=== PATIENT | female | born 2000 | race African-American/Black ===

== ENCOUNTER 2020-07-17 03:25 | Inpatient (IN) | payer BC, MEDICAID ==
[2020-07-17] VITALS (16 sets, daily range): BP systolic 102–132; BP diastolic 54–81
[~2020-07-17] VITALS: Ht 152.4 cm; Wt 48.6 kg
--- NOTE | 2020-07-17 03:30 | NUR ---
ED Nurse Note: Patient brought in by ambulance from home with c/o of hyperglycemia. Patient has hx of DM 1. Patient was admitted 2 days ago at [facility] for DKA and was prescribed insulin but has not taken insulin for day and half now. Patient is nauseated and vomited approx 150cc of gastic juice at bedside. BS triage 451. Patient denies CP/SOB/, fever and chills, denies LOC. Patient is AAOX4 and ambulatory.
--- NOTE | 2020-07-17 03:35 | NUR ---
ED Nurse Note: ERMD at bedside
--- NOTE | 2020-07-17 03:43 | Emergency Room Report ---
History of Present Illness General Chief Complaint: Abnormal Labs Source: Patient Present Illness HPI This is a 20-year-old female with a history of insulin-dependent type 1 diabetes. She presents with chief complaint of nausea and vomiting and hyperglycemia. She recently AMA from [facility] for DKA. Patient said that she has not taken her insulin for a day and a half. Patient states that she started feeling sick and feeling nauseous. No fever chills with no diarrhea. Vomiting is nonbloody and nonbilious. She just checked herself into a rehab facility yesterday for alcohol and benzodiazepine abuse. Denies any other drug use. Allergies: Coded Allergies: No Known Allergies (Unverified , 07/17/20) COVID-19 Screening Contact w/high risk pt: No Experienced COVID-19 symptoms?: No COVID-19 Testing performed ENVIRONMENTAL HEALTH AND SAFETY MANAGER: No Patient History Past Medical History: see triage record, old chart reviewed, DM Past Surgical History: none Pertinent Family History: none Social History: Reports: alcohol use, drug use Now: No Immunizations: other Reviewed Nursing Documentation: PMH: Agreed; PSxH: Agreed Nursing Documentation-PMH Hx Diabetes: Yes Review of Systems Eye: Denies: eye pain, blurred vision ENT: Denies: ear pain, nose congestion, throat swelling Respiratory: Denies: cough, shortness of breath Cardiovascular: Denies: chest pain, palpitations Gastrointestinal: Reports: nausea, vomiting; Denies: abdominal pain, diarrhea Musculoskeletal: Denies: back pain, joint pain Skin: Denies: rash Neurological: Denies: headache, numbness Endocrine: Denies: increased thirst, increased urine Hematologic/Lymphatic: Denies: easy bruising All Other Systems: negative except mentioned in HPI Physical Exam Vital Signs Date Time Temp Pulse Resp B/P (MAP) Pulse Ox O2 Delivery O2 Flow Rate FiO2 07/17/20 03:28 98.4 100 18 132/78 (96) 98 Room Air Vitals unremarkable Sp02 EP Interpretation: reviewed, normal General Appearance: no apparent distress, alert, thin Head: normocephalic, atraumatic Eyes: bilateral eye PERRL, bilateral eye EOMI ENT: hearing grossly normal, normal pharynx Neck: full range of motion, supple, no meningismus Respiratory: chest non-tender, lungs clear, normal breath sounds Cardiovascular #1: regular rate, rhythm, no murmur Gastrointestinal: normal bowel sounds, non tender, no mass, no organomegaly, no bruit, non-distended Musculoskeletal: back normal, normal range of motion, gait/station normal Psychiatric: mood/affect normal Procedures Critical Care Time Critical Care Time Critical care is mandated in this patient who presented with DKA. Patient require my urgent intervention to attenuate the risks of metabolic collapse which may lead to cardiovascular collapse and . Critical care time is 35 minutes excluding any reportable procedure. Critical care time included evaluation, multiple reevaluation, looking at old charts, interpreting laboratory and diagnostic data, discussing case with patient and family and consultants, and charting. Medical Decision Making Diagnostic Impression: Primary Impression: DKA (diabetic ketoacidoses) Qualified Codes: E10.10 - Type 1 diabetes mellitus with ketoacidosis without coma Additional Impression: Noncompliance ER Course Patient presents with DKA. Noncompliant with her medication. Insulin drip started. Because of the dropping glucose, will place her on D5 half-normal saline. I discussed the case with Dr. Gale for admission. EKG Diagnostic Results Rate: normal Rhythm: NSR ST Segments: no acute changes Rhythm Strip Diag. Results EP Interpretation: yes Rate: 98 Rhythm: NSR, no PVC's, no ectopy Last Vital Signs Date Time Temp Pulse Resp B/P (MAP) Pulse Ox O2 Delivery O2 Flow Rate FiO2 07/17/20 03:28 98.4 100 18 132/78 (96) 98 Room Air Status: improved Disposition: ADMITTED INPATIENT Condition: Critical Referrals: NOT CHOSEN IPA/,REFERRING (PCP) Abdullahi Colon MD Jul 17, 2020 03:43
[2020-07-17] MEDS ORDERED: Insulin Human Regular 100units/ml 3ml IV ONE (03:45)
--- NOTE | 2020-07-17 04:00 | NUR ---
ED Nurse Note: Blood sent to lab
[2020-07-17 04:11] LABS: BASOPHILS % (AUTO) 2.7 % (0.0-2.0); EOSINOPHILS % (AUTO) 0.2 % (0.0-3.0); HEMATOCRIT 44.6 % (37.0-47.0); HEMOGLOBIN 14.1 G/DL (12.0-16.0); LYMPHOCYTES % (AUTO) 25.9 % (20.0-45.0); MEAN CORPUSCULAR VOLUME 87 FL (80-99); MONOCYTES % (AUTO) 9.3 % (1.0-10.0); NEUTROPHILS % (AUTO) 61.9 % (45.0-75.0); PLATELET COUNT 362 K/UL (150-450); RED BLOOD COUNT 5.13 M/UL (4.20-5.40); RED CELL DISTRIBUTION WIDTH 12.8 % (11.6-14.8); WHITE BLOOD COUNT 8.7 K/UL (4.8-10.8)
[2020-07-17 04:23] LABS: ANION GAP 26 mmol/L (5-15); BLOOD UREA NITROGEN 7 mg/dL (7-18); CALCIUM 9.2 MG/DL (8.5-10.1); CARBON DIOXIDE 11 MMOL/L (21-32); CHLORIDE 93 MMOL/L (98-107); CREATININE 1.2 MG/DL (0.55-1.30); POTASSIUM 4.2 MMOL/L (3.5-5.1); SODIUM 130 MMOL/L (136-145)
[2020-07-17 04:27] LABS: ALANINE AMINOTRANSFERASE 23 U/L (12-78); ALBUMIN 4.3 G/DL (3.4-5.0); ALBUMIN/GLOBULIN RATIO 1.1 (1.0-2.7); ALKALINE PHOSPHATASE 153 U/L (46-116); ASPARTATE AMINO TRANSFERASE 18 U/L (15-37); BILIRUBIN,TOTAL 0.5 MG/DL (0.2-1.0)
--- NOTE | 2020-07-17 04:51 | NUR ---
ED Nurse Note: Urine sent to lab
[2020-07-17 04:54] LABS: APPEARANCE,URINE CLEAR; BILIRUBIN, URINE NEGATIVE (NEGATIVE); COLOR,URINE PALE YELLOW; GLUCOSE, URINE (UA) 4+ (NEGATIVE); KETONES,URINE 4+ (NEGATIVE); LEUKOCYTE ESTERASE ,URINE NEGATIVE (NEGATIVE); NITRITE,URINE NEGATIVE (NEGATIVE); PH,URINE 5 (4.5-8.0); PROTEIN,URINE 2+ (NEGATIVE); UROBILINOGEN,URINE NORMAL MG/DL (0.0-1.0)
--- NOTE | 2020-07-17 05:09 | NUR ---
ED Nurse Note: vre,cre,mrsa swabs sent
[2020-07-17] MEDS ORDERED: D5 1/2NS w/KCl 20mEq 1,000 ML IV SCH ×2 (05:30→06:00)
[2020-07-17] MEDS ORDERED: Insulin Reg 100 units Premix 100 ML IV SCH ×3 (05:30→21:00)
[2020-07-17 05:42] LABS: ANION GAP 22 mmol/L (5-15); BLOOD UREA NITROGEN 6 mg/dL (7-18); CALCIUM 7.4 MG/DL (8.5-10.1); CARBON DIOXIDE 11 MMOL/L (21-32); CHLORIDE 103 MMOL/L (98-107); POTASSIUM 3.5 MMOL/L (3.5-5.1); SODIUM 136 MMOL/L (136-145)
--- NOTE | 2020-07-17 05:59 | NUR ---
ED Nurse Note: Called [facility] and spoke to INDIO to fix EMAR orders for insulin drip
[2020-07-17] MEDS ORDERED: Insulin Reg 100 units Premix 100 ML IVPB SCH (06:00)
--- NOTE | 2020-07-17 06:00 | NUR ---
ED Nurse Note: Insulin drip started at 3ml/hr - CBG at 245mg/dl
--- NOTE | 2020-07-17 07:00 | NUR ---
ED Nurse Note: CBG at 258mg/dl. ERMD notified
--- NOTE | 2020-07-17 07:02 | NUR ---
HAND-OFF: Report given to MAYURI.
--- NOTE | 2020-07-17 07:03 | NUR ---
ED Nurse Note: Received report from Josh HYATT. Pt seen sleeping in bed. Breathing even and unlabored. Safety and comfort provided. Will cont to monitor.
--- NOTE | 2020-07-17 07:54 | NUR ---
ED Nurse Note: Report given to Sissy HYATT.
[2020-07-17] MEDS ORDERED: NOVOLIN R100 UNIT/1 SUBQ (07:55)
--- NOTE | 2020-07-17 08:00 | NUR ---
TRANSFER TO FLOOR: Patient transferred to ICU. Report given to Sissy HYATT. Pt AAOX4, verbally responsive. Ambulatory. IV line on left AC 20g patent and intact. On insulin drip @ 2.5units/hr. No skin issues. Swabs are sent. Med recon done. All belongings sent with the patient.
--- NOTE | 2020-07-17 08:10 | NUR ---
NURSE NOTES: Patient received from ED RN Krunal. Patient stable at this time with no s/sx of pain or distress. ST on court monitor. Cardiac and breath sounds benign. Bowel sounds present. Insulin drip infusing at 2.5units/hr along with IV fluids. Side rails up x2, call light within reach, bed low and locked.
--- NOTE | 2020-07-17 08:55 | NUR ---
NURSE NOTES: Current BS of 214 with insulin drip at 2.5units. Contacted Dr. Gale for admit orders.
[2020-07-17 09:41] LABS: ANION GAP 14 mmol/L (5-15); BLOOD UREA NITROGEN 6 mg/dL (7-18); CALCIUM 7.6 MG/DL (8.5-10.1); CARBON DIOXIDE 16 MMOL/L (21-32); CHLORIDE 105 MMOL/L (98-107); CREATININE 1.1 MG/DL (0.55-1.30); POTASSIUM 3.7 MMOL/L (3.5-5.1); SODIUM 135 MMOL/L (136-145)
[2020-07-17] MEDS: Insulin Human Regular 100units/ml 3ml IV PRN ×3 (09:51→16:29)
[2020-07-17] MEDS: Insulin Rate Change 1 Each MISC PRN ×6 (09:53→17:19)
[2020-07-17] MEDS ORDERED: Insulin Human Regular 100units/ml 3ml IV PRN (10:00)
--- NOTE | 2020-07-17 10:00 | NUR ---
NURSE NOTES: BS 160. Insulin drip titrated down to 1.2.
--- NOTE | 2020-07-17 11:00 | NUR ---
NURSE NOTES: BS 162. Insulin drip maintained at 1.2.
--- NOTE | 2020-07-17 11:00 | Consultation ---
DATE OF CONSULTATION: 07/17/2020 PULMONARY CONSULTATION/ICU CONSULTATION CONSULTING PHYSICIAN: Edward Putnam MD. HISTORY OF PRESENT ILLNESS: This is a 20-year-old female with a history of insulin dependent diabetes. She presented with marked hyperglycemia, DKA, as well as symptoms of nausea, vomiting, and hyperglycemia. She apparently recently discharged/AMA from [facility]. She again reports that she has not taking her insulin. She is admitted to the hospital in ICU on an insulin drip. She reports that she has a history of alcohol and benzodiazepine abuse. REVIEW OF SYSTEMS: Denies any headaches, hematemesis, melena, or hematochezia. She admits to having nausea and vomiting. PAST MEDICAL HISTORY: Diabetes mellitus, alcohol and benzodiazepine abuse. SOCIAL HISTORY: Denies substance abuse. PHYSICAL EXAMINATION: GENERAL: Reveals a 20-year-old female. VITAL SIGNS: Blood pressure 120/70, heart rate 95, respirations 18. O2 saturation 98% on room air. HEENT: Unremarkable. LUNGS: Clear breath sounds bilaterally. ABDOMEN: Soft. EXTREMITIES: There is no edema. LABORATORY DATA: CBC and chemistries are unremarkable. Glucose was initially 449 with a anion gap of 26. Currently anion gap is 14 and glucose 214. She is on insulin infusion and also on D5 NS. Her urine toxicology is positive for benzodiazepines. IMPRESSION: DKA. DISCUSSION: Admit to ICU. Insulin drip. IV fluids. Keep NPO till gap resolves. Hold off antibiotics. We will initiate DVT prophylaxis. We will follow. Edward Putnam M.D. DR: JOYCE JOB#: [id number] CC:
--- NOTE | 2020-07-17 12:00 | NUR ---
NURSE NOTES: BS 178. Insulin drip maintained at 1.2.
--- NOTE | 2020-07-17 12:04 | Cardiology Report ---
APPROVED REPORT EKG Measurement Heart [id number] ME [id number] <Conclusion> Normal sinus rhythm Nonspecific T wave abnormality Prolonged QT Abnormal ECG
--- NOTE | 2020-07-17 13:00 | NUR ---
NURSE NOTES: BS 203. Insulin drip titrated to 2.0. 5units given IVP.
--- NOTE | 2020-07-17 14:00 | NUR ---
NURSE NOTES: BS 190. Insulin drip titrated down to 1.5.
--- NOTE | 2020-07-17 14:30 | NUR ---
LEASE ADMINISTRATOR NOTE SW met w/ pt and obtained psychosocial information. Pt presents as A&O4x. Pt is ambulatory w/o DMEs and independent w/ ADLs and IADLs. PT has hx of homelessness, sleeping in her car. Pt is currently participating detox program at [facility] to [address] [address]. Pt is single and does not have any children. Pt has hx of Cocaine, ETOH and Xanax abuse. UDS positive for Benzo. Pt shares that she signed AMA when she was hospitalized at [facility] d/t her personal issue. Due to AMA, pt did not get insulin prescription. SW emphasized the importance of insulin in her current health condition. Pt verbalized understanding. Pt plans to return to the detox program upon DC. PT does not share any director of social work concerns/needs at this time. Emergency contact: Chadwick Danielle (father) [phone]
--- NOTE | 2020-07-17 15:00 | NUR ---
NURSE NOTES: BS 166. Insulin drip titrated down to 1.2.
--- NOTE | 2020-07-17 15:18 | NUR ---
CASE MANAGEMENT:REVIEW 20 YR OLD FEMALE BIBA FROM "[facility]" CC: WAS RECENTLY DC'D FROM [facility] WITH PRESCRIPTION FOR INSULIN BUT DID NOT TAKE IT SI: DKA 98.4 100 18 132/78 98% ON RA NA-130 ANION GAP+26 GLUCOSE+449 IS: 1L NS BOLUS X2 IV INSULIN X1 INSULIN GTT : TO ICU
--- NOTE | 2020-07-17 16:00 | NUR ---
NURSE NOTES: BS 211. Insulin drip titrated up to 2.0 and 5 units IVP given.
[2020-07-17 16:26] LABS: ANION GAP 14 mmol/L (5-15); BLOOD UREA NITROGEN 3 mg/dL (7-18); CALCIUM 7.8 MG/DL (8.5-10.1); CARBON DIOXIDE 16 MMOL/L (21-32); CHLORIDE 102 MMOL/L (98-107); CREATININE 0.8 MG/DL (0.55-1.30); POTASSIUM 3.5 MMOL/L (3.5-5.1); SODIUM 132 MMOL/L (136-145)
[2020-07-17] MEDS: NovoLOG Insulin Flexpen SUBQ SCH ×2 (16:50→20:52)
--- NOTE | 2020-07-17 17:00 | NUR ---
NURSE NOTES: BS 134. Insulin drip titrated down to 0.8units/hr. Dinner at bedside but patient not eating. Will hold prandial insulin until patient eats.
--- NOTE | 2020-07-17 17:45 | History and Physical Report ---
DATE OF ADMISSION: 07/17/2020 DATE AND TIME SEEN: 07/17/2020 at 1 p.m. CONSULTS: 1. Dr. Putnam. 2. Dr. Ramesh. CHIEF COMPLAINT: DKA. BRIEF HISTORY: This is a 20-year-old female who currently lives in detox facility, apparently did not take her meds for 2 days, came into [facility] with weakness and lethargy, diagnosed with DKA, admitted to ICU. Currently calm, feeling better, in ICU. No complaint. REVIEW OF SYSTEMS: No chest pain. No shortness of breath. No nausea, vomiting, or diarrhea. PAST MEDICAL HISTORY: Diabetes type 1. PAST SURGICAL HISTORY: None. MEDICATIONS: Famotidine, heparin, insulin, Zofran. ALLERGIES: Denies. SOCIAL HISTORY: Positive smoke. Positive alcohol. Positive cocaine, Xanax, and alcohol abuse. PHYSICAL EXAMINATION: GENERAL: Calm in bed, oriented x3, no acute distress. VITAL SIGNS: Temperature is 98, pulse 100, respirations 20, blood pressure 116/76. CARDIOVASCULAR: No murmur. LUNGS: Distant and clear. ABDOMEN: Bowel sound positive. Nontender. Nondistended. EXTREMITIES: No cyanosis, clubbing, or edema. NEUROLOGIC: The patient moves all extremities, slightly weak. LABORATORY AND DIAGNOSTIC DATA: Labs at this time show CBC is normal. BMP shows sodium of 135, CO2 16, BUN and creatinine . Glucose 214, initially was 449 to 257, now it is 214. Calcium 7.6. Urinalysis, 2+ protein, 4+ glucose, 4+ ketones, 2+ blood. Urine tox positive for benzo. ASSESSMENT: DKA. PLAN: Blood sugar control. Resume home medications. Endocrine, oss architect followup. CBC and BMP in the morning. Harjit Gale D.O. DR: JOÃO JOB#: [id number] CC:
--- NOTE | 2020-07-17 18:31 | NUR ---
NURSE NOTES: BS 125. Drip maintained at 0.8units. Patient appears to be detoxing, Dr. Gale contacted and orders received.
--- NOTE | 2020-07-17 19:20 | NUR ---
NURSE HAND-OFF REPORT: Latest Vital Signs: Temperature 98.4 , Pulse 119 , B/P 125 /68 , Respiratory Rate 25 , O2 SAT 98 , Room Air, O2 Flow Rate . Vital Sign Comment: STABLE EKG Rhythm: Sinus Tachycardia Rhythm change?: No. Increased HR MD Notified?: Y MD Response: Medications received for detoxing. Latest Zelaya Fall Score: 0 Fall Risk: Low Risk Safety Measures: Call light Within Reach, Bed Alarm Zone 1, Side Rails Side Rails x2, Bed position Low and Locked. Fall Precautions: Patient Fall Education Report given to Shanti HYATT. Plan of care endorsed. Informed that insulin drip was just discontinued by Dr. Ramesh and fluids changed. Order received by Dr. Gale for detox medications.
[2020-07-17] MEDS: chlordiazePOXIDE 25mg Cap ORAL SCH (19:31)
[2020-07-17] MEDS: NS w/KCl 20mEq 1000ml 1,000 ML IV SCH (19:33)
--- NOTE | 2020-07-17 20:00 | NUR ---
NURSE NOTES: RECEIVED REPORT FROM JOSÉ HYATT PT AWAKE AND ALERT NO ACUTE DISTRESS NOTED IV INFUSING WELL SITE GOOD REPOSITION HERSELF ON RA O2 WRS333% SLEEPING AT INTERVAL WELL MONITOR PT
--- NOTE | 2020-07-17 20:30 | Consultation ---
DATE OF CONSULTATION: 07/17/2020 ENDOCRINOLOGY CONSULTATION CONSULTING PHYSICIAN: Dave Ramesh MD REFERRING PHYSICIAN: Harjit Gale DO REASON FOR CONSULTATION: DKA. HISTORY OF PRESENT ILLNESS: Patient is a 20-year-old female with history of type 1 diabetes, who presented to the hospital with diabetic ketoacidosis. She had a recent presentation at [facility]. She was discharged and she presented with DKA at that hospital. Patient has history of drug abuse and came to [facility] for rehabilitation. PAST MEDICAL HISTORY: 1. Type 1 diabetes. 2. Alcoholism. 3. Benzodiazepine abuse. SOCIAL HISTORY: Substance abuse. FAMILY HISTORY: Noncontributory. REVIEW OF SYSTEMS: As per HPI. MEDICATIONS: Reviewed and reconciled. LABORATORY VALUES: Sodium 132, potassium 3.5, chloride 102, bicarb 16, BUN 3, creatinine 0.8, glucose of 187 . A1c of 12.2. PHYSICAL EXAMINATION: GENERAL: She is awake and alert. VITAL SIGNS: Blood pressure is 121/81, pulse of 120, temperature 98.4. HEENT: Pupils are equal and reactive to light. Sclerae anicteric. NECK: No JVD. No thyromegaly. No bruit. LUNGS: Clear. HEART: Regular rate and rhythm. ABDOMEN: Positive bowel sounds. EXTREMITIES: No clubbing, cyanosis, or edema. DIAGNOSES: 1. DKA, mild, resolved. 2. Type 1 diabetes. 3. Substance abuse. 4. Noncompliance. PLAN: 1. Start Levemir insulin 15 units q.24h. 2. NovoLog 5 units before each meal. 3. NovoLog sliding scale before meals and at bedtime. 4. Hypoglycemia protocol. 5. Discontinue insulin drip. 6. Patient may be transferred out of the ICU. Thank you, Dr. Gale, for the courtesy of this consultation. Dave Ramesh M.D. DR: OLENA/CATA JOB#: [id number] CC:
[2020-07-17] MEDS: Heparin 5000 units/ml inj SUBQ SCH (20:49)
[2020-07-17] MEDS: Levemir Flexpen SUBQ SCH (20:50)
--- NOTE | 2020-07-17 22:00 | NUR ---
NURSE NOTES: sleeping at interval no c/o pain
[2020-07-18] VITALS (20 sets, daily range): BP systolic 80–122; BP diastolic 49–96
--- NOTE | 2020-07-18 | NUR ---
NURSE NOTES: condetion un change
--- NOTE | 2020-07-18 02:00 | NUR ---
NURSE NOTES: asleep no apparent acute reaction
--- NOTE | 2020-07-18 04:00 | NUR ---
NURSE NOTES: refuse early bath want to sleep more
[2020-07-18] MEDS: NS w/KCl 20mEq 1000ml 1,000 ML IV SCH ×2 (05:49→17:03)
[2020-07-18] MEDS: NovoLOG Insulin Flexpen SUBQ SCH ×7 (05:52→20:54)
[2020-07-18 05:58] LABS: BASOPHILS % (AUTO) 0.9 % (0.0-2.0); EOSINOPHILS % (AUTO) 0.9 % (0.0-3.0); HEMATOCRIT 37.6 % (37.0-47.0); HEMOGLOBIN 12.1 G/DL (12.0-16.0); LYMPHOCYTES % (AUTO) 18.3 % (20.0-45.0); MEAN CORPUSCULAR VOLUME 89 FL (80-99); PLATELET COUNT 252 K/UL (150-450); RED BLOOD COUNT 4.21 M/UL (4.20-5.40); RED CELL DISTRIBUTION WIDTH 13.4 % (11.6-14.8); WHITE BLOOD COUNT 6.6 K/UL (4.8-10.8)
--- NOTE | 2020-07-18 06:00 | NUR ---
NURSE NOTES: BS 234 INSULIN COVERAGE ORDER
--- NOTE | 2020-07-18 06:12 | General Progress Note ---
Subjective Allergies: Coded Allergies: No Known Allergies (Unverified , 07/17/20) All Systems: reviewed and negative except above Subjective events noted glucose values more stable am labs are pending Item Value Date Time Bedside Blood Glucose 234 mg/dl H 07/18/20 0554 Bedside Blood Glucose 278 mg/dl H 07/17/20 2052 Bedside Blood Glucose 125 mg/dl H 07/17/20 1800 Bedside Blood Glucose 190 mg/dl H 07/17/20 1408 Bedside Blood Glucose 160 mg/dl H 07/17/20 1057 Glucose Level 257 MG/DL H # 07/17/20 0515 Bedside Blood Glucose 245 mg/dl H 07/17/20 0603 Objective Last 24 Hour Vital Signs Date Time Temp Pulse Resp B/P (MAP) Pulse Ox O2 Delivery O2 Flow Rate FiO2 07/18/20 05:00 107 24 104/49 (67) 99 07/18/20 04:00 107 07/18/20 04:00 98.0 110 23 119/65 (83) 99 07/18/20 04:00 Room Air 07/18/20 03:00 110 24 117/64 (81) 99 07/18/20 02:00 112 26 110/58 (75) 98 07/18/20 01:00 111 22 104/56 (72) 100 07/18/20 00:00 Room Air 07/18/20 00:00 97.8 111 23 99/55 (70) 97 07/18/20 00:00 112 07/17/20 23:00 112 20 106/60 (75) 99 07/17/20 22:00 116 22 120/65 (83) 100 07/17/20 21:00 111 20 122/56 (78) 98 07/17/20 20:00 Room Air 07/17/20 20:00 Room Air 07/17/20 20:00 115 22 118/58 (78) 99 07/17/20 20:00 115 07/17/20 19:00 119 25 125/68 (87) 98 07/17/20 18:00 98.4 120 16 121/81 (94) 93 07/17/20 17:00 114 22 117/54 (75) 07/17/20 16:00 108 07/17/20 16:00 Room Air 07/17/20 16:00 108 21 127/71 (89) 100 07/17/20 15:00 106 20 106/61 (76) 100 07/17/20 14:00 103 21 113/73 (86) 100 07/17/20 12:00 100 07/17/20 12:00 105 20 116/76 (89) 99 07/17/20 12:00 Room Air 07/17/20 11:00 114 20 125/79 (94) 100 07/17/20 10:00 107 20 122/74 (90) 100 07/17/20 09:00 98.9 96 19 117/78 (91) 100 07/17/20 08:30 Room Air 07/17/20 08:00 98.5 95 19 128/71 98 Room Air 07/17/20 07:03 98.4 98 19 102/57 98 Room Air Intake and Output 07/17/20 07/18/20 19:00 07:00 Intake Total 1374.8 ml 1050 ml Output Total 1400 ml 800 ml Balance -25.2 ml 250 ml Intake Oral 50 ml IV Total 1374.8 ml 1000 ml Output Urine Total 1400 ml 800 ml # Voids 4 2 # Bowel Movements 2 3 Laboratory Tests 07/17/20 07:48: POC Whole Blood Glucose 221H 07/17/20 09:00: Sodium Level 135L, Potassium Level 3.7, Chloride Level 105, Carbon Dioxide Level 16L, Anion Gap 14, Blood Urea Nitrogen 6L, Creatinine 1.1, Estimat Glomerular Filtration Rate > 60, Glucose Level 214H, Calcium Level 7.6L 07/17/20 13:52: POC Whole Blood Glucose 190H 07/17/20 15:09: POC Whole Blood Glucose 166H 07/17/20 15:55: Sodium Level 132L, Potassium Level 3.5, Chloride Level 102, Carbon Dioxide Level 16L, Anion Gap 14, Blood Urea Nitrogen 3L, Creatinine 0.8, Estimat Glomerular Filtration Rate > 60, Glucose Level 187H, Calcium Level 7.8L 07/17/20 16:14: POC Whole Blood Glucose 211H 07/17/20 17:03: POC Whole Blood Glucose 134H 07/17/20 18:14: POC Whole Blood Glucose 125H 07/17/20 20:33: POC Whole Blood Glucose [Pending] 07/18/20 04:43: White Blood Count 6.6, Red Blood Count 4.21, Hemoglobin 12.1, Hematocrit 37.6, Mean Corpuscular Volume 89, Mean Corpuscular Hemoglobin 28.7, Mean Corpuscular Hemoglobin Concent 32.1, Red Cell Distribution Width 13.4, Platelet Count 252, Mean Platelet Volume 5.8L, Neutrophils (%) (Auto) 69.0, Lymphocytes (%) (Auto) 18.3L, Monocytes (%) (Auto) 11.0H, Eosinophils (%) (Auto) 0.9, Basophils (%) (Auto) 0.9, Sodium Level [Pending], Potassium Level [Pending], Chloride Level [Pending], Carbon Dioxide Level [Pending], Blood Urea Nitrogen [Pending], Creatinine [Pending], Estimat Glomerular Filtration Rate [Pending], Glucose Level [Pending], Calcium Level [Pending] Height (Feet): 5 Weight (Pounds): 110 General Appearance: no apparent distress Neck: normal alignment Respiratory/Chest: lungs clear Abdomen: normal bowel sounds Pelvis: normal external exam Objective Current Medications Medications (Trade) Dose Ordered Sig/Colleen Route PRN Reason Start Time Stop Time Status Last Admin Dose Admin Chlordiazepoxide (Librium) 25 mg TID ORAL 07/17/20 19:00 07/24/20 18:59 07/17/20 19:31 Dextrose (Dextrose 50%) 25 ml Q30M PRN IV HYPOGLYCEMIA 07/17/20 10:00 10/15/20 09:59 Dextrose (Dextrose 50%) 50 ml Q30M PRN IV HYPOGLYCEMIA 07/17/20 09:15 10/15/20 09:14 Famotidine (Pepcid) 20 mg Q12HR ORAL 07/17/20 21:00 10/15/20 20:59 07/17/20 20:48 Gabapentin (Neurontin) 200 mg THREE TIMES A DAY ORAL 07/17/20 19:00 08/16/20 18:59 07/17/20 19:31 Heparin Sodium (Porcine) (Heparin 5000 units/ml) 5,000 units EVERY 12 HOURS SUBQ 07/17/20 21:00 08/31/20 20:59 07/17/20 20:49 Insulin Aspart (NovoLOG) BEFORE MEALS AND HS SUBQ 07/17/20 21:00 10/15/20 20:59 07/18/20 05:54 Insulin Aspart (NovoLOG) 5 units NOVOTIAC SUBQ 07/17/20 16:50 10/15/20 16:49 07/18/20 05:52 Insulin Detemir (Levemir) 15 units BEDTIME SUBQ 07/17/20 21:00 10/15/20 20:59 07/17/20 20:50 Ondansetron HCl (Zofran) 4 mg Q6H PRN IVP Nausea & Vomiting 07/17/20 11:00 08/16/20 10:59 07/17/20 14:07 Potassium Chloride/Sodium Chloride 1,000 ml @ 100 mls/hr Q10H IV 07/17/20 20:00 08/16/20 19:59 07/18/20 05:49 Assessment/Plan Problem List: (1) T1DM (type 1 diabetes mellitus) ICD Codes: E10.9 - Type 1 diabetes mellitus without complications SNOMED: 57051336 (2) DKA (diabetic ketoacidoses) ICD Codes: E11.10 - Type 2 diabetes mellitus with ketoacidosis without coma SNOMED: 939524571, 75448680 Qualifiers: Qualified Codes: E10.10 - Type 1 diabetes mellitus with ketoacidosis without coma (3) Noncompliance ICD Codes: Z91.19 - Patient's noncompliance with other medical treatment and regimen SNOMED: 3586894 Assessment/Plan: continue Levemir 15 units qhs continue Novolog 5 units ac tid + SSI may be transferred out of ICU from endocrine stand point Dave Ramesh MD Jul 18, 2020 06:12
[2020-07-18 06:28] LABS: ANION GAP 14 mmol/L (5-15); CALCIUM 8.1 MG/DL (8.5-10.1); CARBON DIOXIDE 18 MMOL/L (21-32); CHLORIDE 103 MMOL/L (98-107); CREATININE 0.9 MG/DL (0.55-1.30); SODIUM 135 MMOL/L (136-145)
[2020-07-18 06:52] LABS: BLOOD UREA NITROGEN 1 mg/dL (7-18)
--- NOTE | 2020-07-18 07:28 | NUR ---
NURSE HAND-OFF REPORT: Latest Vital Signs: Temperature 98.0 , Pulse 107 , B/P 109 /70 , Respiratory Rate 24 , O2 SAT 100 , Room Air, O2 Flow Rate . Vital Sign Comment: EKG Rhythm: Sinus Tachycardia Rhythm change?: N MD Notified?: - MD Response: Latest Zelaya Fall Score: 0 Fall Risk: Low Risk Safety Measures: Call light Within Reach, Bed Alarm Zone 1, Side Rails Side Rails x2, Bed position Low and Locked. Fall Precautions: Patient Fall Education Report given to LISY HYATT USING SBAR
--- NOTE | 2020-07-18 07:30 | NUR ---
NURSE NOTES: Patient received from [facility]. Patient stable at this time with no s/sx of pain or distress. 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 Cardiac and breath sounds benign. Bowel sounds present. IV fluids infusing though LTAC 20. Side rails up x2, call light within reach, bed low and locked.
[2020-07-18] MEDS: chlordiazePOXIDE 25mg Cap ORAL SCH ×3 (09:09→18:07)
[2020-07-18] MEDS: Heparin 5000 units/ml inj SUBQ SCH ×2 (09:10→20:49)
--- NOTE | 2020-07-18 09:30 | NUR ---
NURSE NOTES: Patient woken up and given meal tray. Patient medicated and given ordered potassium. Spoke with patient regarding alcohol abuse, treatment during hospitalization and also discussed insulin and maintaining BS with proper diet. Patient verbalized understanding.
--- NOTE | 2020-07-18 09:49 | General Progress Note ---
Subjective Constitutional: Reports: weakness Allergies: Coded Allergies: No Known Allergies (Unverified , 07/17/20) All Systems: reviewed and negative except above Subjective calm in bed Objective Last 24 Hour Vital Signs Date Time Temp Pulse Resp B/P (MAP) Pulse Ox O2 Delivery O2 Flow Rate FiO2 07/18/20 07:00 107 24 109/70 (83) 100 07/18/20 06:00 106 107/68 (81) 100 07/18/20 05:00 107 24 104/49 (67) 99 07/18/20 04:00 107 07/18/20 04:00 98.0 110 23 119/65 (83) 99 07/18/20 04:00 Room Air 07/18/20 03:00 110 24 117/64 (81) 99 07/18/20 02:00 112 26 110/58 (75) 98 07/18/20 01:00 111 22 104/56 (72) 100 07/18/20 00:00 Room Air 07/18/20 00:00 97.8 111 23 99/55 (70) 97 07/18/20 00:00 112 07/17/20 23:00 112 20 106/60 (75) 99 07/17/20 22:00 116 22 120/65 (83) 100 07/17/20 21:00 111 20 122/56 (78) 98 07/17/20 20:00 Room Air 07/17/20 20:00 Room Air 07/17/20 20:00 115 22 118/58 (78) 99 07/17/20 20:00 115 07/17/20 19:00 119 25 125/68 (87) 98 07/17/20 18:00 98.4 120 16 121/81 (94) 93 07/17/20 17:00 114 22 117/54 (75) 07/17/20 16:00 108 07/17/20 16:00 Room Air 07/17/20 16:00 108 21 127/71 (89) 100 07/17/20 15:00 106 20 106/61 (76) 100 07/17/20 14:00 103 21 113/73 (86) 100 07/17/20 12:00 100 07/17/20 12:00 105 20 116/76 (89) 99 07/17/20 12:00 Room Air 07/17/20 11:00 114 20 125/79 (94) 100 07/17/20 10:00 107 20 122/74 (90) 100 Intake and Output 07/17/20 07/18/20 19:00 07:00 Intake Total 1374.8 ml 1150 ml Output Total 1400 ml 800 ml Balance -25.2 ml 350 ml Intake Oral 150 ml IV Total 1374.8 ml 1000 ml Output Urine Total 1400 ml 800 ml # Voids 4 2 # Bowel Movements 2 3 Laboratory Tests 07/17/20 13:52: POC Whole Blood Glucose 190H 07/17/20 15:09: POC Whole Blood Glucose 166H 07/17/20 15:55: Sodium Level 132L, Potassium Level 3.5, Chloride Level 102, Carbon Dioxide Level 16L, Anion Gap 14, Blood Urea Nitrogen 3L, Creatinine 0.8, Estimat Glomerular Filtration Rate > 60, Glucose Level 187H, Calcium Level 7.8L 07/17/20 16:14: POC Whole Blood Glucose 211H 07/17/20 17:03: POC Whole Blood Glucose 134H 07/17/20 18:14: POC Whole Blood Glucose 125H 07/17/20 20:33: POC Whole Blood Glucose [Pending] 07/18/20 04:43: White Blood Count 6.6, Red Blood Count 4.21, Hemoglobin 12.1, Hematocrit 37.6, Mean Corpuscular Volume 89, Mean Corpuscular Hemoglobin 28.7, Mean Corpuscular Hemoglobin Concent 32.1, Red Cell Distribution Width 13.4, Platelet Count 252, Mean Platelet Volume 5.8L, Neutrophils (%) (Auto) 69.0, Lymphocytes (%) (Auto) 18.3L, Monocytes (%) (Auto) 11.0H, Eosinophils (%) (Auto) 0.9, Basophils (%) (Auto) 0.9, Sodium Level 135L, Potassium Level 3.0L, Chloride Level 103, Carbon Dioxide Level 18L, Anion Gap 14, Blood Urea Nitrogen 1L, Creatinine 0.9, Estimat Glomerular Filtration Rate > 60, Glucose Level 248H, Calcium Level 8.1L Height (Feet): 5 Weight (Pounds): 110 General Appearance: alert EENT: normal ENT inspection Neck: normal alignment Cardiovascular: normal peripheral pulses, normal rate, regular rhythm Respiratory/Chest: chest wall non-tender, lungs clear, normal breath sounds Abdomen: normal bowel sounds, non tender, soft Extremities: normal inspection Edema: no edema noted Arm (L), no edema noted Arm (R), no edema noted Leg (L), no edema noted Leg (R), no edema noted Pedal (L), no edema noted Pedal (R), no edema noted Generalized Neurologic: responsive, motor weakness Skin: normal pigmentation, warm/dry Assessment/Plan Problem List: (1) DKA (diabetic ketoacidoses) ICD Codes: E11.10 - Type 2 diabetes mellitus with ketoacidosis without coma SNOMED: 886521176, 52397535 Qualifiers: Qualified Codes: E10.10 - Type 1 diabetes mellitus with ketoacidosis without coma (2) Noncompliance ICD Codes: Z91.19 - Patient's noncompliance with other medical treatment and regimen SNOMED: 1270447 (3) T1DM (type 1 diabetes mellitus) ICD Codes: E10.9 - Type 1 diabetes mellitus without complications SNOMED: 48273016 Status: stable, progressing Assessment/Plan: bs control cbc bmp am tele transfer if stable Harjit Gale DO Jul 18, 2020 09:49
--- NOTE | 2020-07-18 10:59 | Pulmonology Progress Note ---
Subjective Interval Events: Doing well Constitutional: Reports: no symptoms HEENT: Repors: no symptoms Respiratory: Reports: no symptoms Cardiovascular: Reports: no symptoms Gastrointestinal/Abdominal: Reports: no symptoms Allergies: Coded Allergies: No Known Allergies (Unverified , 07/17/20) All Systems: reviewed and negative except above Objective Last 24 Hour Vital Signs Date Time Temp Pulse Resp B/P (MAP) Pulse Ox O2 Delivery O2 Flow Rate FiO2 07/18/20 10:00 112 17 106/68 (81) 100 07/18/20 09:00 102 23 108/49 (68) 07/18/20 08:00 Room Air 07/18/20 08:00 98.7 104 24 111/59 (76) 100 07/18/20 07:27 105 07/18/20 07:00 107 24 109/70 (83) 100 07/18/20 06:00 106 107/68 (81) 100 07/18/20 05:00 107 24 104/49 (67) 99 07/18/20 04:00 107 07/18/20 04:00 98.0 110 23 119/65 (83) 99 07/18/20 04:00 Room Air 07/18/20 03:00 110 24 117/64 (81) 99 07/18/20 02:00 112 26 110/58 (75) 98 07/18/20 01:00 111 22 104/56 (72) 100 07/18/20 00:00 Room Air 07/18/20 00:00 97.8 111 23 99/55 (70) 97 07/18/20 00:00 112 07/17/20 23:00 112 20 106/60 (75) 99 07/17/20 22:00 116 22 120/65 (83) 100 07/17/20 21:00 111 20 122/56 (78) 98 07/17/20 20:00 Room Air 07/17/20 20:00 Room Air 07/17/20 20:00 115 22 118/58 (78) 99 07/17/20 20:00 115 07/17/20 19:00 119 25 125/68 (87) 98 07/17/20 18:00 98.4 120 16 121/81 (94) 93 07/17/20 17:00 114 22 117/54 (75) 07/17/20 16:00 108 07/17/20 16:00 Room Air 07/17/20 16:00 108 21 127/71 (89) 100 07/17/20 15:00 106 20 106/61 (76) 100 07/17/20 14:00 103 21 113/73 (86) 100 07/17/20 12:00 100 07/17/20 12:00 105 20 116/76 (89) 99 07/17/20 12:00 Room Air 07/17/20 11:00 114 20 125/79 (94) 100 Intake and Output 07/17/20 07/18/20 19:00 07:00 Intake Total 1374.8 ml 1150 ml Output Total 1400 ml 800 ml Balance -25.2 ml 350 ml Intake Oral 150 ml IV Total 1374.8 ml 1000 ml Output Urine Total 1400 ml 800 ml # Voids 4 2 # Bowel Movements 2 3 General Appearance: no acute distress HEENT: normocephalic Respiratory: chest wall non-tender, lungs clear Cardiovascular: normal peripheral pulses Abdomen: normal bowel sounds Laboratory Tests 07/17/20 13:52: POC Whole Blood Glucose 190H 07/17/20 15:09: POC Whole Blood Glucose 166H 07/17/20 15:55: Sodium Level 132L, Potassium Level 3.5, Chloride Level 102, Carbon Dioxide Level 16L, Anion Gap 14, Blood Urea Nitrogen 3L, Creatinine 0.8, Estimat Glomerular Filtration Rate > 60, Glucose Level 187H, Calcium Level 7.8L 07/17/20 16:14: POC Whole Blood Glucose 211H 07/17/20 17:03: POC Whole Blood Glucose 134H 07/17/20 18:14: POC Whole Blood Glucose 125H 07/17/20 20:33: POC Whole Blood Glucose [Pending] 07/18/20 04:43: White Blood Count 6.6, Red Blood Count 4.21, Hemoglobin 12.1, Hematocrit 37.6, Mean Corpuscular Volume 89, Mean Corpuscular Hemoglobin 28.7, Mean Corpuscular Hemoglobin Concent 32.1, Red Cell Distribution Width 13.4, Platelet Count 252, Mean Platelet Volume 5.8L, Neutrophils (%) (Auto) 69.0, Lymphocytes (%) (Auto) 18.3L, Monocytes (%) (Auto) 11.0H, Eosinophils (%) (Auto) 0.9, Basophils (%) (Auto) 0.9, Sodium Level 135L, Potassium Level 3.0L, Chloride Level 103, Carbon Dioxide Level 18L, Anion Gap 14, Blood Urea Nitrogen 1L, Creatinine 0.9, Estimat Glomerular Filtration Rate > 60, Glucose Level 248H, Calcium Level 8.1L Current Medications Medications (Trade) Dose Ordered Sig/Colleen Route PRN Reason Start Time Stop Time Status Last Admin Dose Admin Chlordiazepoxide (Librium) 25 mg TID ORAL 07/17/20 19:00 07/24/20 18:59 07/18/20 09:09 Dextrose (Dextrose 50%) 25 ml Q30M PRN IV HYPOGLYCEMIA 07/17/20 10:00 10/15/20 09:59 Dextrose (Dextrose 50%) 50 ml Q30M PRN IV HYPOGLYCEMIA 07/17/20 09:15 10/15/20 09:14 Famotidine (Pepcid) 20 mg Q12HR ORAL 07/17/20 21:00 10/15/20 20:59 07/18/20 09:09 Gabapentin (Neurontin) 200 mg THREE TIMES A DAY ORAL 07/17/20 19:00 08/16/20 18:59 07/18/20 09:09 Heparin Sodium (Porcine) (Heparin 5000 units/ml) 5,000 units EVERY 12 HOURS SUBQ 07/17/20 21:00 08/31/20 20:59 07/18/20 09:10 Insulin Aspart (NovoLOG) BEFORE MEALS AND HS SUBQ 07/17/20 21:00 10/15/20 20:59 07/18/20 05:54 Insulin Aspart (NovoLOG) 5 units NOVOTIAC SUBQ 07/17/20 16:50 10/15/20 16:49 07/18/20 05:52 Insulin Detemir (Levemir) 15 units BEDTIME SUBQ 07/17/20 21:00 10/15/20 20:59 07/17/20 20:50 Ondansetron HCl (Zofran) 4 mg Q6H PRN IVP Nausea & Vomiting 07/17/20 11:00 08/16/20 10:59 07/17/20 14:07 Potassium Chloride/Sodium Chloride 1,000 ml @ 100 mls/hr Q10H IV 07/17/20 20:00 08/16/20 19:59 07/18/20 05:49 Assessment/Plan Assessment/Plan IMPRESSION: DKA. DISCUSSION: Off Insulin drip. IV fluids. Advance diet DVT prophylaxis. I will follow as needed. On Librium and Neurontin for ETOH detox Transfer to med surg Jerry Moulton Omar Syed MD Jul 18, 2020 10:59
--- NOTE | 2020-07-18 12:00 | NUR ---
NURSE NOTES: Patient stable. No s/sx of pain or distress. BS taken. Will given insulin.
--- NOTE | 2020-07-18 12:59 | NUR ---
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 98.7 HR 107 RR 27 B/P 106/68 NA 135 K 3.0 GLU 248 IS: IVF NS KCL @ 100ML/HR HEPARIN SUBC NEURONTIN PO DOWNGRADE TELE STATUS
--- NOTE | 2020-07-18 14:00 | NUR ---
NURSE NOTES: Patient stable. No s/sx of pain or distress.
--- NOTE | 2020-07-18 14:25 | NUR ---
INSURANCE CLINICAL/REVIEW SENT TO ph#[phone] fax# [phone]
--- NOTE | 2020-07-18 17:00 | NUR ---
NURSE NOTES: Patient stable. No s/sx of pain or distress. BS taken. Will given insulin.
--- NOTE | 2020-07-18 19:59 | NUR ---
NURSE HAND-OFF REPORT: Latest Vital Signs: Temperature 98.7 , Pulse 111 , B/P 108 /96 , Respiratory Rate 15 , O2 SAT 100 , Room Air, O2 Flow Rate . Vital Sign Comment: STABLE EKG Rhythm: Sinus Tachycardia Rhythm change?: N MD Notified?: - MD Response: Latest Zelaya Fall Score: 0 Fall Risk: Low Risk Safety Measures: Call light Within Reach, Bed Alarm Zone 1, Side Rails Side Rails x2, Bed position Low and Locked. Fall Precautions: Patient Fall Education Report given to Acacia HYATT. Patient stable. Plan of care endorsed. Patient still wearing ring. Clothes at bedside.
--- NOTE | 2020-07-18 20:00 | NUR ---
NURSE NOTES: Received report from [facility]. Patient is sitting in semi-fowlers position on the phone at this time. Patient is in stable condition. Patient is alert and oriented x4. No complaints of pain at this time. No s/s of acute distress. Patient has a left AC 20G running NS with 20 mEq KCL at 100cc/hr as ordered. Patent and Flushed. No bleeding or erythema noted. Patient was placed on fall precaution. Patient belonging and call light with in reach. Patient was educated on how to use the call light to call for help and for assistance with needs. Patient verbalized understanding. Bed in lowest position and locked. Will continue plan of care.
[2020-07-18] MEDS: Levemir Flexpen SUBQ SCH (20:51)
[2020-07-19] VITALS: BP 110/76
[2020-07-19] MEDS: NS w/KCl 20mEq 1000ml 1,000 ML IV SCH ×2 (02:00→05:59)
[2020-07-19 04:00] VITALS: BP 100/53
--- NOTE | 2020-07-19 06:25 | General Progress Note ---
Subjective Allergies: Coded Allergies: No Known Allergies (Unverified , 07/17/20) All Systems: reviewed and negative except above Subjective events noted glucose values are stable Item Value Date Time Bedside Blood Glucose 158 mg/dl H 07/18/20 2054 Bedside Blood Glucose 165 mg/dl H 07/18/20 1705 Bedside Blood Glucose 234 mg/dl H 07/18/20 1224 Bedside Blood Glucose 234 mg/dl H 07/18/20 0554 Objective Last 24 Hour Vital Signs Date Time Temp Pulse Resp B/P (MAP) Pulse Ox O2 Delivery O2 Flow Rate FiO2 07/19/20 04:00 97.5 89 18 100/53 (69) 99 07/19/20 04:00 92 07/19/20 00:00 97.6 87 18 110/76 (87) 98 07/18/20 21:00 Room Air 07/18/20 20:00 98.8 104 18 119/74 (89) 97 07/18/20 20:00 108 07/18/20 18:00 111 15 108/96 (100) 100 07/18/20 17:00 114 14 118/78 (91) 100 07/18/20 16:00 114 19 110/63 (79) 76 07/18/20 16:00 98.7 07/18/20 16:00 117 07/18/20 16:00 Room Air 07/18/20 15:00 107 19 113/78 (90) 76 07/18/20 14:00 107 27 99/66 (77) 07/18/20 13:00 110 20 80/54 (63) 07/18/20 12:00 Room Air 07/18/20 12:00 98.4 107 21 122/80 (94) 85 07/18/20 12:00 120 07/18/20 11:00 107 27 119/74 (89) 82 07/18/20 10:00 112 17 106/68 (81) 100 07/18/20 09:00 102 23 108/49 (68) 07/18/20 08:00 Room Air 07/18/20 08:00 98.7 104 24 111/59 (76) 100 07/18/20 07:27 105 07/18/20 07:00 107 24 109/70 (83) 100 Intake and Output 07/18/20 07/19/20 19:00 07:00 Intake Total 1680 ml Output Total 1200 ml Balance 480 ml Intake Oral 1680 ml Output Urine Total 1100 ml Stool Total 100 ml # Voids 4 # Bowel Movements 3 1 Laboratory Tests 07/18/20 12:20: POC Whole Blood Glucose 232H 07/18/20 16:58: POC Whole Blood Glucose 165H 07/18/20 20:41: POC Whole Blood Glucose 158H 07/19/20 06:01: POC Whole Blood Glucose 85 Height (Feet): 5 Weight (Pounds): 110 General Appearance: no apparent distress Neck: normal alignment Cardiovascular: normal rate Respiratory/Chest: lungs clear Abdomen: normal bowel sounds Pelvis: normal external exam Objective Current Medications Medications (Trade) Dose Ordered Sig/Colleen Route PRN Reason Start Time Stop Time Status Last Admin Dose Admin Chlordiazepoxide (Librium) 25 mg TID ORAL 07/17/20 19:00 07/24/20 18:59 07/18/20 18:07 Dextrose (Dextrose 50%) 25 ml Q30M PRN IV HYPOGLYCEMIA 07/17/20 10:00 10/15/20 09:59 Dextrose (Dextrose 50%) 50 ml Q30M PRN IV HYPOGLYCEMIA 07/17/20 09:15 10/15/20 09:14 Famotidine (Pepcid) 20 mg Q12HR ORAL 07/17/20 21:00 10/15/20 20:59 07/18/20 20:48 Gabapentin (Neurontin) 200 mg THREE TIMES A DAY ORAL 07/17/20 19:00 08/16/20 18:59 07/18/20 18:07 Heparin Sodium (Porcine) (Heparin 5000 units/ml) 5,000 units EVERY 12 HOURS SUBQ 07/17/20 21:00 08/31/20 20:59 07/18/20 20:49 Insulin Aspart (NovoLOG) BEFORE MEALS AND HS SUBQ 07/17/20 21:00 10/15/20 20:59 07/18/20 20:54 Insulin Aspart (NovoLOG) 5 units NOVOTIAC SUBQ 07/17/20 16:50 10/15/20 16:49 07/18/20 17:05 Insulin Detemir (Levemir) 15 units BEDTIME SUBQ 07/17/20 21:00 10/15/20 20:59 07/18/20 20:51 Ondansetron HCl (Zofran) 4 mg Q6H PRN IVP Nausea & Vomiting 07/17/20 11:00 08/16/20 10:59 07/17/20 14:07 Potassium Chloride/Sodium Chloride 1,000 ml @ 100 mls/hr Q10H IV 07/17/20 20:00 08/16/20 19:59 07/19/20 05:59 Assessment/Plan Problem List: (1) T1DM (type 1 diabetes mellitus) ICD Codes: E10.9 - Type 1 diabetes mellitus without complications SNOMED: 92063954 (2) DKA (diabetic ketoacidoses) ICD Codes: E11.10 - Type 2 diabetes mellitus with ketoacidosis without coma SNOMED: 104541605, 93153705 Qualifiers: Qualified Codes: E10.10 - Type 1 diabetes mellitus with ketoacidosis without coma (3) Noncompliance ICD Codes: Z91.19 - Patient's noncompliance with other medical treatment and regimen SNOMED: 9721392 Status: stable, progressing Assessment/Plan: continue Levemir 15 units qhs continue Novolog 5 units ac tid + SSI may be transferred out of ICU from endocrine stand point Dave Ramesh MD Jul 19, 2020 06:25
[2020-07-19] MEDS: NovoLOG Insulin Flexpen SUBQ SCH ×6 (06:30→16:41)
--- NOTE | 2020-07-19 07:20 | NUR ---
NURSE HAND-OFF REPORT: Important Events on Shift:Patient was admitted from ICU Patient Status: Patient is stable. Diet: CCHO med Pending Orders: Pending Results/Labs: Pending MD notification: Latest Vital Signs: Temperature 97.5 , Pulse 92 , B/P 100 /53 , Respiratory Rate 18 , O2 SAT 99 , Room Air, O2 Flow Rate . Vital Sign Comment: EKG Rhythm: Sinus Rhythm Rhythm change?: N MD Notified?: - MD Response: Latest Zelaya Fall Score: 0 Fall Risk: Low Risk Safety Measures: Call light Within Reach, Bed Alarm Zone 1, Side Rails Side Rails x2, Bed position Low and Locked. Fall Precautions: Patient Fall Education Report given to Mindi HYATT .
--- NOTE | 2020-07-19 07:21 | NUR ---
NURSE NOTES: Received hand-off report from Acacia Bernal RN. Patient in stable condition, on room air, oxygen saturation 97%, unlabored and even breathing, Patient denies any pain at this time. Bed in lowest and locked position, bed alarm on, call light within reach.
[2020-07-19 07:27] LABS: ANION GAP 8 mmol/L (5-15); BLOOD UREA NITROGEN 2 mg/dL (7-18); CALCIUM 8.4 MG/DL (8.5-10.1); CARBON DIOXIDE 26 MMOL/L (21-32); CHLORIDE 108 MMOL/L (98-107); CREATININE 0.6 MG/DL (0.55-1.30); SODIUM 142 MMOL/L (136-145)
[2020-07-19 07:36] LABS: BASOPHILS % (AUTO) 0.9 % (0.0-2.0); HEMATOCRIT 37.5 % (37.0-47.0); LYMPHOCYTES % (AUTO) 40.1 % (20.0-45.0); MEAN CORPUSCULAR VOLUME 86 FL (80-99); MONOCYTES % (AUTO) 12.6 % (1.0-10.0); NEUTROPHILS % (AUTO) 44.3 % (45.0-75.0); PLATELET COUNT 280 K/UL (150-450); RED BLOOD COUNT 4.37 M/UL (4.20-5.40); RED CELL DISTRIBUTION WIDTH 13.1 % (11.6-14.8); WHITE BLOOD COUNT 4.6 K/UL (4.8-10.8)
--- NOTE | 2020-07-19 07:53 | NUR ---
RD ASSESSMENT & RECOMMENDATIONS SEE CARE ACTIVITY FOR COMPLETE ASSESSMENT DAILY ESTIMATED NEEDS: Needs based on DKA/ 49kg 25-30 kcals/kg 7546-9136 total kcals 1-1.5 g protein/kg 49-73 g total protein 25-30 mL/kg 9255-3167 total fluid mLs NUTRITION DIAGNOSIS: Altered nutrition related lab values R/T DKA w/ h/o DM type 1 as evidenced by BG 449 upon adm, now improved and off insulin drip, anion gap 26 upon adm-> now wnl, A1C 12.0. [facility] DIET RECOMMENDATIONS: [facility] LOW ADDITIONAL RECOMMENDATIONS: * Standing wt for accurate CBW * Monitor BGs closely, monitor for hypoglycemia w/ current insulin regimen * Diet education as able- pt asleep this AM upon visit * H/o ETOH abuse: consider MVI x 1, thiamine 100mg QD, Folic acid 1mg QD
[2020-07-19] MEDS: chlordiazePOXIDE 25mg Cap ORAL SCH ×3 (09:21→18:11)
[2020-07-19] MEDS: Heparin 5000 units/ml inj SUBQ SCH (09:29)
--- NOTE | 2020-07-19 09:58 | NUR ---
NURSE NOTES: Called Dr. Gale regarding potassium 3.0. Dr. Gale ordered 40meq KCl one time, CBC and BMP in the morning. Noted and will carry out.
--- NOTE | 2020-07-19 10:28 | Pulmonology Progress Note ---
Subjective Interval Events: Doing well Constitutional: Reports: no symptoms HEENT: Repors: no symptoms Respiratory: Reports: no symptoms Cardiovascular: Reports: no symptoms Gastrointestinal/Abdominal: Reports: no symptoms Allergies: Coded Allergies: No Known Allergies (Unverified , 07/17/20) All Systems: reviewed and negative except above Objective Last 24 Hour Vital Signs Date Time Temp Pulse Resp B/P (MAP) Pulse Ox O2 Delivery O2 Flow Rate FiO2 07/19/20 08:00 96 07/19/20 04:00 97.5 89 18 100/53 (69) 99 07/19/20 04:00 92 07/19/20 00:00 97.6 87 18 110/76 (87) 98 07/18/20 21:00 Room Air 07/18/20 20:00 98.8 104 18 119/74 (89) 97 07/18/20 20:00 108 07/18/20 18:00 111 15 108/96 (100) 100 07/18/20 17:00 114 14 118/78 (91) 100 07/18/20 16:00 114 19 110/63 (79) 76 07/18/20 16:00 98.7 07/18/20 16:00 117 07/18/20 16:00 Room Air 07/18/20 15:00 107 19 113/78 (90) 76 07/18/20 14:00 107 27 99/66 (77) 07/18/20 13:00 110 20 80/54 (63) 07/18/20 12:00 Room Air 07/18/20 12:00 98.4 107 21 122/80 (94) 85 07/18/20 12:00 120 07/18/20 11:00 107 27 119/74 (89) 82 Intake and Output 07/18/20 07/19/20 19:00 07:00 Intake Total 1680 ml Output Total 1200 ml Balance 480 ml Intake Oral 1680 ml Output Urine Total 1100 ml Stool Total 100 ml # Voids 4 # Bowel Movements 3 1 General Appearance: no acute distress HEENT: normocephalic Respiratory: chest wall non-tender, lungs clear Cardiovascular: normal peripheral pulses Abdomen: normal bowel sounds Microbiology Date/Time Source Procedure Growth Status 07/17/20 05:00 Rectum VRE Culture - Preliminary NO VANCOMYCIN RESISTANT ENTEROCOCCUS ... Resulted 07/17/20 05:00 Rectum - Final NO CARBAPENEM-RESISTANT ENTEROBACTERI... Complete Laboratory Tests 07/18/20 12:20: POC Whole Blood Glucose 232H 07/18/20 16:58: POC Whole Blood Glucose 165H 07/18/20 20:41: POC Whole Blood Glucose 158H 07/19/20 06:01: POC Whole Blood Glucose 85 07/19/20 06:02: White Blood Count 4.6L, Red Blood Count 4.37, Hemoglobin 12.0, Hematocrit 37.5, Mean Corpuscular Volume 86, Mean Corpuscular Hemoglobin 27.5, Mean Corpuscular Hemoglobin Concent 32.1, Red Cell Distribution Width 13.1, Platelet Count 280, Mean Platelet Volume 6.3L, Neutrophils (%) (Auto) 44.3L, Lymphocytes (%) (Auto) 40.1, Monocytes (%) (Auto) 12.6H, Eosinophils (%) (Auto) 2.0, Basophils (%) (Auto) 0.9, Sodium Level 142, Potassium Level 3.0L, Chloride Level 108H, Carbon Dioxide Level 26, Anion Gap 8, Blood Urea Nitrogen 2L, Creatinine 0.6, Estimat Glomerular Filtration Rate > 60, Glucose Level 82#, Calcium Level 8.4L Current Medications Medications (Trade) Dose Ordered Sig/Colleen Route PRN Reason Start Time Stop Time Status Last Admin Dose Admin Chlordiazepoxide (Librium) 25 mg TID ORAL 07/17/20 19:00 07/24/20 18:59 07/19/20 09:21 Dextrose (Dextrose 50%) 25 ml Q30M PRN IV HYPOGLYCEMIA 07/17/20 10:00 10/15/20 09:59 Dextrose (Dextrose 50%) 50 ml Q30M PRN IV HYPOGLYCEMIA 07/17/20 09:15 10/15/20 09:14 Famotidine (Pepcid) 20 mg Q12HR ORAL 07/17/20 21:00 10/15/20 20:59 07/19/20 09:21 Gabapentin (Neurontin) 200 mg THREE TIMES A DAY ORAL 07/17/20 19:00 08/16/20 18:59 07/19/20 09:21 Heparin Sodium (Porcine) (Heparin 5000 units/ml) 5,000 units EVERY 12 HOURS SUBQ 07/17/20 21:00 08/31/20 20:59 07/19/20 09:29 Insulin Aspart (NovoLOG) BEFORE MEALS AND HS SUBQ 07/17/20 21:00 10/15/20 20:59 07/18/20 20:54 Insulin Aspart (NovoLOG) 5 units NOVOTIAC SUBQ 07/17/20 16:50 10/15/20 16:49 07/18/20 17:05 Insulin Detemir (Levemir) 15 units BEDTIME SUBQ 07/17/20 21:00 10/15/20 20:59 07/18/20 20:51 Ondansetron HCl (Zofran) 4 mg Q6H PRN IVP Nausea & Vomiting 07/17/20 11:00 08/16/20 10:59 07/17/20 14:07 Potassium Chloride/Sodium Chloride 1,000 ml @ 100 mls/hr Q10H IV 07/17/20 20:00 08/16/20 19:59 07/19/20 05:59 Potassium Chloride (K-Dur) 40 meq ONCE ONCE ORAL 07/19/20 10:15 07/19/20 10:16 UNV Assessment/Plan Assessment/Plan IMPRESSION: DKA. DISCUSSION: Off Insulin drip. IV fluids. Advanced diet DVT prophylaxis. I will follow as needed. On Librium and Neurontin for ETOH detox Transfer to med surg Jerry Moulton Omar Syed MD Jul 19, 2020 10:28
--- NOTE | 2020-07-19 12:20 | NUR ---
TRANSFER TO FLOOR: Patient transferred to med-surg, per Dr. Putnam. Report given to OLENA Ward. Belongings and medications given to OLENA Ward. Family and or S/O informed of transfer. Patient in stable condition, alert and orientedx4, transferred via wheel chair, cardiac technician off. Addendum: 07/19/20 at 1238 by Mindi Curry RN Tranferred to [phone].
--- NOTE | 2020-07-19 12:24 | General Progress Note ---
Subjective Constitutional: Reports: weakness Allergies: Coded Allergies: No Known Allergies (Unverified , 07/17/20) All Systems: reviewed and negative except above Subjective calm in bed eating Objective Last 24 Hour Vital Signs Date Time Temp Pulse Resp B/P (MAP) Pulse Ox O2 Delivery O2 Flow Rate FiO2 07/19/20 09:00 Room Air 07/19/20 08:00 96 07/19/20 04:00 97.5 89 18 100/53 (69) 99 07/19/20 04:00 92 07/19/20 00:00 97.6 87 18 110/76 (87) 98 07/18/20 21:00 Room Air 07/18/20 20:00 98.8 104 18 119/74 (89) 97 07/18/20 20:00 108 07/18/20 18:00 111 15 108/96 (100) 100 07/18/20 17:00 114 14 118/78 (91) 100 07/18/20 16:00 114 19 110/63 (79) 76 07/18/20 16:00 98.7 07/18/20 16:00 117 07/18/20 16:00 Room Air 07/18/20 15:00 107 19 113/78 (90) 76 07/18/20 14:00 107 27 99/66 (77) 07/18/20 13:00 110 20 80/54 (63) Intake and Output 07/18/20 07/19/20 19:00 07:00 Intake Total 1680 ml Output Total 1200 ml Balance 480 ml Intake Oral 1680 ml Output Urine Total 1100 ml Stool Total 100 ml # Voids 4 # Bowel Movements 3 1 Laboratory Tests 07/18/20 16:58: POC Whole Blood Glucose 165H 07/18/20 20:41: POC Whole Blood Glucose 158H 07/19/20 06:01: POC Whole Blood Glucose 85 07/19/20 06:02: White Blood Count 4.6L, Red Blood Count 4.37, Hemoglobin 12.0, Hematocrit 37.5, Mean Corpuscular Volume 86, Mean Corpuscular Hemoglobin 27.5, Mean Corpuscular Hemoglobin Concent 32.1, Red Cell Distribution Width 13.1, Platelet Count 280, Mean Platelet Volume 6.3L, Neutrophils (%) (Auto) 44.3L, Lymphocytes (%) (Auto) 40.1, Monocytes (%) (Auto) 12.6H, Eosinophils (%) (Auto) 2.0, Basophils (%) (Auto) 0.9, Sodium Level 142, Potassium Level 3.0L, Chloride Level 108H, Carbon Dioxide Level 26, Anion Gap 8, Blood Urea Nitrogen 2L, Creatinine 0.6, Estimat Glomerular Filtration Rate > 60, Glucose Level 82#, Calcium Level 8.4L 07/19/20 10:36: POC Whole Blood Glucose 277H Height (Feet): 5 Weight (Pounds): 110 General Appearance: alert EENT: normal ENT inspection Neck: normal alignment Cardiovascular: normal peripheral pulses, normal rate, regular rhythm Respiratory/Chest: chest wall non-tender, lungs clear, normal breath sounds Abdomen: normal bowel sounds, non tender, soft Extremities: normal inspection Edema: no edema noted Arm (L), no edema noted Arm (R), no edema noted Leg (L), no edema noted Leg (R), no edema noted Pedal (L), no edema noted Pedal (R), no edema noted Generalized Neurologic: responsive, motor weakness Skin: normal pigmentation, warm/dry Assessment/Plan Problem List: (1) DKA (diabetic ketoacidoses) ICD Codes: E11.10 - Type 2 diabetes mellitus with ketoacidosis without coma SNOMED: 353432611, [id number] Qualifiers: Qualified Codes: E10.10 - Type 1 diabetes mellitus with ketoacidosis without coma (2) Noncompliance ICD Codes: Z91.19 - Patient's noncompliance with other medical treatment and regimen SNOMED: 0383829 (3) T1DM (type 1 diabetes mellitus) ICD Codes: E10.9 - Type 1 diabetes mellitus without complications SNOMED: 48256116 Status: stable, progressing Assessment/Plan: bs control cbc bmp am dc if stable Harjit Gale DO Jul 19, 2020 12:24
[2020-07-19] MEDS ORDERED: GABAPENTIN100 MG ORAL (12:43)
--- NOTE | 2020-07-19 12:45 | NUR ---
NURSE NOTES: *Transfer* Patient received from - (Tele) to [phone] via on RA, in stable condition. VSS. Patient AOx4, calm. No s/s of hypo/hyperglycemia. Respirations even/unlabored. Skin intact. Denies SOB, pain, NV. IVF (NS +20 KCL at 100 ml/hr) to LAC, site asymptomatic. Belongings reviewed, signed. Oriented patient to room and call light, verbalized understanding. Call light in reach, bed in lowest position, will continue to monitor. Addendum: 07/19/20 at 1927 by Sylvia Licona RN Report received from Mindi HYATT.
[2020-07-19 12:48] VITALS: BP 117/81
--- NOTE | 2020-07-19 15:51 | NUR ---
discharge planning: note cm s/w patient. Patient is to be discharged to [facility] at 1830. Medications need to be filled and in hand prior to dc Patient will need a copy of dc summary t: [phone] Bret or [phone] main line Bret will be providing transportation to detox facility. Direct number to nurses station provided Nursing updated and made aware that medications need to be in hand prior to dc
--- NOTE | 2020-07-19 15:59 | NUR ---
INSURANCE CLINICAL/REVIEW SENT TO ph#[phone] fax# [phone]
[2020-07-19 16:00] VITALS: BP 110/77
--- NOTE | 2020-07-19 18:01 | NUR ---
NURSE NOTES: Spoke with Marija in pharmacy, gabrielle to give Librium and Neurontin 1800 dose now (reviewed that last dose was given at 1430) Addendum: 07/19/20 at 191 by Sylvia Licona RN *[facility]eg[facility] in Pharmacy
[2020-07-19] MEDS ORDERED: NEURONTIN100 MG ORAL (18:32)
--- NOTE | 2020-07-19 18:50 | NUR ---
NURSE NOTES: Spoke with Bret at [address] [facility], informed him that the patient was given her prescription bottle of Neurontin (which was filled by [facility] pharmacy and delivered to patient) and that there are 180 capsules in bottle. Reviewed medication order ( Neurontin 200 mg three times daily). Patient set to be picked up in 10 minutes via [employer] reconnaissance vehicle driver, named Filipe in [facility] [place]. Patient aware, verbalized understanding.
--- NOTE | 2020-07-19 19:10 | NUR ---
NURSE NOTES: Discharge instructions and medications reviewed with patient, verbalized understanding. Patient states she needs her insulin filled, Chelly FULLER notified, instructed patient to have her pharmacy call Dr. Gale, phone number provided on discharge instructions. Neurontin prescription bottle and all belongings given to patient. Ambulated down to lobby with RN, in stable condition. Discharged to [facility] via [employer] at 1910. Addendum: 07/19/20 at 2004 by Sylvia Licona RN ID bracelet removed and IV discontinued, no active bleeding.
--- NOTE | 2020-07-19 19:32 | NUR ---
NURSE NOTES: Detailed message left for Dr. Gale regarding patient needs her insulin filled, but patient didn't have pharmacy information. Provided rehab assistant (Bret) numbers and [phone]), to contact for pharmacy information for Dr. Gale to call in her prescription for her. Awaiting call back. Next shift Ana Luisa FULLER notified.
--- NOTE | 2020-07-19 20:00 | NUR ---
NURSE NOTES: Dr. Ramesh notified of patient needing insulin filled, informed that patient was recently at [facility], last week and was provided with full supplies and insulin prescriptions already.
== END 2020-07-19 19:15 | disposition home or self-care (01) | DRG 639 ==
LOC: EDBD 03:25 → EMR 03:38 → ICU 04:55 → EDBEDREQ 07:28 → 2E 07-18 19:13 → 3E 07-19 12:30
DX: E10.10 Type 1 diabetes mellitus with ketoacidosis without coma (principal); Z79.4 Long term (current) use of insulin; Z91.14 Patient's other noncompliance with medication regimen; F10.20 Alcohol dependence, uncomplicated; F14.10 Cocaine abuse, uncomplicated; F13.10 Sedative, hypnotic or anxiolytic abuse, uncomplicated; F17.200 Nicotine dependence, unspecified, uncomplicated
CPT/HCPCS: 36415; 80048; 80053; 80307; 81003; 81025; 82009; 82962; 83036; 83735; 85025; 87081; 93005; 96361; 96374; 96375; 99291; J1815; J2405; J7030; J8499; S5561